=== PATIENT | female | born 1955 | race Asian ===

== ENCOUNTER 2025-01-10 14:05 | Inpatient (IN) | payer MEDICARE, MEDICAID ==
[~2025-01-10] VITALS: Ht 154.9 cm; Wt 60.7 kg
[~2025-01-10 14:05] MED LIST: ACET-2247 PO; DOCU-385 PO; ETHY1MED2 NASAL; FAMO20 PO; HEPA50009 SQ; INSLAN SQ; LEVE-71 PO; LOSA-381 PO; SULF-261 PO
[2025-01-10 16:03] LABS: CALCIUM, TOTAL 8.8 mg/dL (8.8-10.5); CREATININE 2.67 mg/dL (0.60-1.30); GLOMERULAR FILTR. RATE CALC 18.0 mL/min (>60); SODIUM SERUM 138.0 mmol/L (136-145)
[2025-01-10 16:06] LABS: GLUCOSE,RANDOM 410.0 mg/dL (70-110); UREA NITROGEN, BLOOD 110.0 mg/dL (7-18)
[2025-01-10 16:07] LABS: PLATELET COUNT (AUTO) 678 K/uL (150-450); RED BLOOD CELL COUNT(AUTO) 3.35 MIL/uL (4.00-5.20); RED CELL DISTRIBUTION WIDTH 17.3 % (11.5-14.5); WHITE BLOOD COUNT (AUTO) 15.2 K/uL (4.5-11.0)
[2025-01-10] MEDS ORDERED: 0.9% SODIUM CHLORIDE 10 ML SYRINGE IVP PRN (16:30)
[2025-01-10] MEDS: INSULIN REGULAR, HUMAN 100 UNITS/ML IVP ONE (16:49)
[2025-01-10] MEDS: SODIUM CHLORIDE 0.9% 1,600 ML IV ONE (16:49)
[2025-01-10 16:57] LABS: ASPARTATE AMINOTRANSFERASE 21 U/L (15-37); TOTAL PROTEIN, SERUM 8.9 g/dL (6.4-8.2)
[2025-01-10 16:58] LABS: TROPONIN I-HIGH SENSITIVITY 32 ng/L (<51)
[2025-01-10 16:59] LABS: LACTIC ACID 1.9 mmol/L (0.4-2.0)
[2025-01-10] MEDS: PIPERACILLIN SODIUM/TAZOBACTAM 2.25 GM in DEXTROSE 5%-WATER 50 ML IV SCH (17:22)
[2025-01-10 17:26] LABS: APPEARANCE,URINE TURBID (CLEAR); GLUCOSE, URINE (UA) NEGATIVE (NEGATIVE); LEUKOCYTE ESTERASE ,URINE LARGE (NEGATIVE); NITRATE,URINE NEGATIVE (NEGATIVE); OCCULT BLOOD,URINE LARGE (NEGATIVE); SPECIFIC GRAVITIY, URINE 1.010 (1.003-1.030)
[2025-01-10 17:31] LABS: ABG BASE EXCESS -12.7 mmol/L (-2.0-3.0); ABG CARBOXYHEMOGLOBIN 0.3 % (0.5-1.5); ABG HCO3 15.4 mmol/L (21.0-28.0); ABG METHEMOGLOBIN 1.2 % (0.0-1.5); ABG OXYGEN CONTENT 12.5 mL/dL (15.0-23.0); ABG OXYGEN SATURATION 97.1 % (94.0-98.0); ABG OXYHEMOGLOBIN 95.6 % (94.0-98.0); ABG PCO2 25 mmHg (32.0-45.0); ABG PH 7.342 (7.350-7.450); ABG TOTAL HEMOGLOBIN 9.2 G/dL (12.0-16.0); FRACTIONATED INSPIRED OXYGEN 21.0 % (21-100.0); PO2, ARTERIAL BG 98.4 mmHg (83.0-108.0); SOURCE, BLOOD GAS ARTERIAL; TEMPERATURE, FAHRENHEIT, BG 98.6 FAHREN (96.0-98.6)
[2025-01-10 17:32] LABS: ALLEN TEST, BLOOD GAS Positive; O2 DEVICE,BLOOD GAS ROOM AIR (ROOM AIR); SITE, BLOOD GAS LFT RADIAL
[2025-01-10 17:38] LABS: SQUAMOUS EPITHELIAL CELL,UR Few /LPF (None Seen); YEAST,URINE Moderate /HPF (None Seen)
[2025-01-10 17:39] LABS: SULFOSALICYLIC ACID,URINE 2+ (Negative)
[2025-01-10] MEDS ORDERED: ACETAMINOPHEN 325 MG TABLET PO PRN (19:00)
[2025-01-10] MEDS ORDERED: DEXTROSE 50%-WATER 25 GM/50 ML SYRINGE IVP PRN (19:00)
[2025-01-10] MEDS ORDERED: ONDANSETRON HCL 4 MG/2 ML VIAL IVP PRN (19:00)
[2025-01-10] MEDS: AZITHROMYCIN 500 MG/NS 250 ML IV SCH (19:29)
[2025-01-10] MEDS: INSULIN GLARGINE,HUM.REC.ANLOG 100 UNITS/ML SQ SCH (19:30)
[2025-01-10] MEDS: DOCUSATE SODIUM 100 MG CAPSULE PO SCH (19:39)
[2025-01-10 19:41] LABS: GLUCOMETER DEV NAME(LOC) ERT.7; GLUCOSE,POINT OF CARE 317 MG/DL (70-110)
[2025-01-10 21:11] VITALS: BP 153/82; PULSE 102; RESP 18; TEMP 98.6; O2SAT 99
[2025-01-10] MEDS: RINGERS SOLUTION,LACTATED 500 ML IV ONE (21:34)
[2025-01-10] MEDS: HEPARIN SODIUM,PORCINE 5,000 UNITS/ML VIAL SQ SCH (23:48)
[2025-01-11 00:30] VITALS: BP 141/69; PULSE 101; RESP 18; TEMP 97.7; O2SAT 99
[2025-01-11] MEDS: PIPERACILLIN SODIUM/TAZOBACTAM 2.25 GM in DEXTROSE 5%-WATER 50 ML IV SCH (01:37)
[2025-01-11 03:21] VITALS: BP 156/87; PULSE 107; RESP 17; TEMP 98.8; O2SAT 99
[2025-01-11] MEDS: INSULIN LISPRO 100 UNITS/ML SQ PRN (05:58)
[2025-01-11 07:35] VITALS: BP 121/75; PULSE 110; RESP 18; TEMP 97.9; O2SAT 99
[2025-01-11 08:37] LABS: PLATELET COUNT (AUTO) 666 K/uL (150-450); RED BLOOD CELL COUNT(AUTO) 3.14 MIL/uL (4.00-5.20); RED CELL DISTRIBUTION WIDTH 17.3 % (11.5-14.5); WHITE BLOOD COUNT (AUTO) 17.6 K/uL (4.5-11.0)
[2025-01-11] MEDS: DOCUSATE SODIUM 100 MG CAPSULE PO SCH (09:00)
[2025-01-11 09:05] LABS: CALCIUM, TOTAL 8.8 mg/dL (8.8-10.5); CREATININE 2.19 mg/dL (0.60-1.30); GLOMERULAR FILTR. RATE CALC 22.0 mL/min (>60); GLUCOSE,RANDOM 326.0 mg/dL (70-110); SODIUM SERUM 143.0 mmol/L (136-145); UREA NITROGEN, BLOOD 89.0 mg/dL (7-18)
[2025-01-11] MEDS ORDERED: SODIUM CHLORIDE 0.9% 250 ML IV ONE (09:14)
[2025-01-11] MEDS: RINGERS SOLUTION,LACTATED 1,000 ML IV SCH (09:28)
[2025-01-11] MEDS: FAMOTIDINE 20 MG TABLET PO SCH (09:28)
[2025-01-11] MEDS: RINGERS SOLUTION,LACTATED 500 ML IV ONE (10:28)
[2025-01-11] MEDS: RINGERS SOLUTION,LACTATED 500 ML IV SCH (11:00)
[2025-01-11 11:25] VITALS: BP 117/79; PULSE 117; RESP 20; TEMP 97; O2SAT 98
[2025-01-11 11:46] LABS: GLUCOMETER DEV NAME(LOC) 5S.2D; GLUCOSE,POINT OF CARE 281 MG/DL (70-110)
[2025-01-11] MEDS: INSULIN GLARGINE,HUM.REC.ANLOG 100 UNITS/ML SQ SCH (11:50)
[2025-01-11 15:42] VITALS: BP 130/75; PULSE 110; RESP 18; TEMP 98.2; O2SAT 99
[2025-01-11 16:16] LABS: GLUCOMETER DEV NAME(LOC) 5S.1D; GLUCOSE,POINT OF CARE 296 MG/DL (70-110)
[2025-01-11 20:00] VITALS: BP 156/72; PULSE 107; RESP 18; TEMP 98.6; O2SAT 100
[2025-01-11] MEDS: SODIUM CHLORIDE 0.45% 1,000 ML IV SCH (20:37)
[2025-01-12] MEDS ORDERED: SODIUM CHLORIDE 0.9% 500 ML IV ONE (06:33)
[2025-01-12 06:48] LABS: CALCIUM, TOTAL 8.6 mg/dL (8.8-10.5); CREATININE 1.91 mg/dL (0.60-1.30); GLOMERULAR FILTR. RATE CALC 26.0 mL/min (>60); GLUCOSE,RANDOM 145.0 mg/dL (70-110); SODIUM SERUM 141.0 mmol/L (136-145); UREA NITROGEN, BLOOD 75.0 mg/dL (7-18)
[2025-01-12 07:04] LABS: PHOSPHORUS 3.1 mg/dL (2.5-4.9)
[2025-01-12 07:54] VITALS: BP 145/75; PULSE 84; RESP 19; TEMP 98.1; O2SAT 100
[2025-01-12 11:42] VITALS: BP 161/79; PULSE 88; RESP 18; TEMP 98; O2SAT 97
[2025-01-12 12:21] LABS: GLUCOMETER DEV NAME(LOC) 5S.2D; GLUCOSE,POINT OF CARE 200 MG/DL (70-110)
[2025-01-12 12:21] LABS: GLUCOMETER DEV NAME(LOC) 5S.2D; GLUCOSE,POINT OF CARE 215 MG/DL (70-110)
[2025-01-12 15:35] VITALS: BP 153/73; PULSE 82; RESP 19; TEMP 98; O2SAT 99
[2025-01-12] MEDS ORDERED: MEGE40 PO (15:56)
[2025-01-12] MEDS ORDERED: METO25 PO (15:56)
[2025-01-12] MEDS ORDERED: METF-1211 PO (15:56)
[2025-01-12 17:06] LABS: GLUCOMETER DEV NAME(LOC) 5N.1D; GLUCOSE,POINT OF CARE 118 MG/DL (70-110)
[2025-01-12 20:59] VITALS: BP 154/94; PULSE 82; RESP 18; TEMP 98.2; O2SAT 100
[2025-01-12] MEDS ORDERED: INSULIN GLARGINE,HUM.REC.ANLOG 100 UNITS/ML SQ SCH (21:00)
[2025-01-12] MEDS: INSULIN GLARGINE,HUM.REC.ANLOG 100 UNITS/ML SQ SCH (21:07)
[2025-01-13 03:31] LABS: GLUCOMETER DEV NAME(LOC) 6N.2C; GLUCOSE,POINT OF CARE 132 MG/DL (70-110)
[2025-01-13 04:54] VITALS: BP 161/79; PULSE 77; RESP 18; TEMP 98.2; O2SAT 100
[2025-01-13 06:01] VITALS: BP 143/77; PULSE 87
[2025-01-13] MEDS: HEPARIN SODIUM,PORCINE 5,000 UNITS/ML VIAL SQ SCH (06:12)
[2025-01-13 07:49] LABS: CALCIUM, TOTAL 8.5 mg/dL (8.8-10.5); CREATININE 1.5 mg/dL (0.60-1.30); GLOMERULAR FILTR. RATE CALC 34.0 mL/min (>60); GLUCOSE,RANDOM 193.0 mg/dL (70-110); SODIUM SERUM 137.0 mmol/L (136-145); UREA NITROGEN, BLOOD 47.0 mg/dL (7-18)
[2025-01-13 07:50] LABS: PLATELET COUNT (AUTO) 534 K/uL (150-450); RED BLOOD CELL COUNT(AUTO) 2.93 MIL/uL (4.00-5.20); RED CELL DISTRIBUTION WIDTH 17.2 % (11.5-14.5); WHITE BLOOD COUNT (AUTO) 15.5 K/uL (4.5-11.0)
[2025-01-13 08:08] LABS: PHOSPHORUS 3.3 mg/dL (2.5-4.9)
[2025-01-13 08:40] VITALS: BP 142/78; PULSE 84; RESP 18; TEMP 98; O2SAT 98
[2025-01-13 10:35] LABS: % IRON SATURATION 26.5 % (22-44); IRON, SERUM 35.0 mcg/dL (50-175)
[2025-01-13] MEDS: TAMSULOSIN HCL 0.4 MG CAPSULE PO SCH (11:19)
[2025-01-13] MEDS ORDERED: PIPE2.2562 IV (13:34)
[2025-01-13] MEDS ORDERED: FERR324T23 PO (13:35)
[2025-01-13] MEDS ORDERED: PANT-31 PO (13:36)
[2025-01-13] MEDS ORDERED: SODI650T33 PO (13:39)
[2025-01-13 15:26] LABS: GLUCOMETER DEV NAME(LOC) 6S.2; GLUCOSE,POINT OF CARE 230 MG/DL (70-110)
[2025-01-13] MEDS: PIPERACILLIN SODIUM/TAZOBACTAM 2.25 GM in DEXTROSE 5%-WATER 50 ML IV SCH (15:32)
[2025-01-13 16:09] VITALS: BP 148/76; PULSE 82; RESP 18; TEMP 98.2; O2SAT 96
[2025-01-14 05:55] LABS: GLUCOMETER DEV NAME(LOC) 6S.1D; GLUCOSE,POINT OF CARE 252 MG/DL (70-110)
[2025-01-14 07:30] LABS: GLUCOMETER DEV NAME(LOC) 6N.2C; GLUCOSE,POINT OF CARE 200 MG/DL (70-110)
== END 2025-01-13 19:36 | DRG 871 ==
LOC: EMS 14:05 → EDH 17:42 → 5S 21:06 → 6S 01-12 20:05
PROVIDERS: ADMIT Internal Medicine; ATTEND Internal Medicine
DX: A41.9 Sepsis, unspecified organism (principal); J18.9 Pneumonia, unspecified organism; N17.0 Acute kidney failure with tubular necrosis; E44.0 Moderate protein-calorie malnutrition; R65.20 Severe sepsis without septic shock; E11.65 Type 2 diabetes mellitus with hyperglycemia; I10 Essential (primary) hypertension; D64.9 Anemia, unspecified; G40.909 Epilepsy, unspecified, not intractable, without status epilepticus; Z66 Do not resuscitate; Y95 Nosocomial condition; E87.6 Hypokalemia; F32.A Depression, unspecified; E86.0 Dehydration; Z74.01 Bed confinement status; Z86.73 Personal history of transient ischemic attack (TIA), and cerebral infarction without residual deficits; Z79.899 Other long term (current) drug therapy; Z68.25 Body mass index [BMI] 25.0-25.9, adult; Z79.4 Long term (current) use of insulin; Z86.19 Personal history of other infectious and parasitic diseases; Z86.718 Personal history of other venous thrombosis and embolism
CPT/HCPCS: 51702; 71045; 74176; 76770; 80048; 80076; 81001; 81002; 82009; 82271; 82805; 82962; 83540; 83550; 83605; 83735; 83880; 84100; 84145; 84484; 85025; 85045; 85610; 87040; 87081; 87086; 93005; 99291; G0378; J0456; J1644; J1815; J2543; J7030; J7040; J7050; J7060; J7120; 36415-L1; 36415-TC

== ENCOUNTER 2025-03-22 20:53 | Emergency (ER) | payer MEDICARE, MEDICAID ==
[~2025-03-22] VITALS: Ht 152.4 cm; Wt 45.9 kg
[~2025-03-22 20:53] MED LIST changes: +CHOL10002 PO; -ETHY1MED2 NASAL; +FERR324T23 PO; +HYDR-3421 PO; -LOSA-381 PO; +MEGE40 PO; +METF-1211 PO; +METO25 PO; +MULT-264 PO; +NYST15PO13 TP; +ONDA4 PO; -SULF-261 PO
[2025-03-22] MEDS ORDERED: INSULIN LISPRO 100 UNITS/ML SQ PRN (21:00)
[2025-03-22] MEDS ORDERED: ACETAMINOPHEN 325 MG TABLET PO PRN (21:00)
[2025-03-22] MEDS ORDERED: IPRATROPIUM BROMIDE 0.5 MG/2.5 ML NEB SOLUTION NEB PRN (21:00)
[2025-03-22] MEDS ORDERED: ALBUTEROL SULFATE 2.5 MG/0.5 ML NEB SOLUTION NEB PRN (21:00)
[2025-03-22] MEDS ORDERED: DEXTROSE 50%-WATER 25 GM/50 ML SYRINGE IVP PRN (21:00)
[2025-03-22] MEDS: DOCUSATE SODIUM 100 MG CAPSULE PO SCH (21:00)
[2025-03-22] MEDS ORDERED: ONDANSETRON HCL 4 MG/2 ML VIAL IVP PRN (21:00)
[2025-03-22] MEDS ORDERED: 0.9% SODIUM CHLORIDE 10 ML SYRINGE IVP PRN ×2 (21:00)
[2025-03-22 21:28] LABS: PLATELET COUNT (AUTO) 509 K/uL (150-450); RED BLOOD CELL COUNT(AUTO) 3.38 MIL/uL (4.00-5.20); RED CELL DISTRIBUTION WIDTH 19.8 % (11.5-14.5); WHITE BLOOD COUNT (AUTO) 25.5 K/uL (4.5-11.0)
[2025-03-22] MEDS: SODIUM CHLORIDE 0.9% 1,000 ML IV ONE (21:33)
[2025-03-22] MEDS: CefTRIAXone 1 GM/DEXTROSE 50 ML IV ONE (21:33)
[2025-03-22 21:40] LABS: CALCIUM, TOTAL 9.2 mg/dL (8.8-10.5); CREATININE 5.26 mg/dL (0.60-1.30); GLOMERULAR FILTR. RATE CALC 8 mL/min (>60); GLUCOSE,RANDOM 183 mg/dL (70-110); SODIUM SERUM 145 mmol/L (136-145)
[2025-03-22 21:46] LABS: TROPONIN I-HIGH SENSITIVITY 30 ng/L (<51)
[2025-03-22 21:49] LABS: UREA NITROGEN, BLOOD 224 mg/dL (7-18)
[2025-03-22 21:50] LABS: LACTIC ACID 2.2 mmol/L (0.4-2.0)
[2025-03-22 21:52] LABS: ASPARTATE AMINOTRANSFERASE 27 U/L (15-37)
[2025-03-22 21:52] LABS: COVID AG,FIA SOURCE NASAL SWAB
[2025-03-22 21:53] LABS: LACTATE DEHYDROGENASE 114 U/L (81-234); TOTAL PROTEIN, SERUM 8.9 g/dL (6.4-8.2)
[2025-03-22] MEDS: *CLINICAL-MEROPENEM DOSING CLINICAL ONE (21:59)
[2025-03-22 22:24] LABS: INFLUENZA TYPE A NEGATIVE FOR TYPE A (NEGATIVE); INFLUENZA TYPE B NEGATIVE FOR TYPE B (NEGATIVE); SARS-COV2 (COVID) ANTIGEN,FIA Negative (Negative)
[2025-03-22] MEDS: SODIUM ZIRCONIUM CYCLOSILICATE 10 GM POWDER PACKET PO ONE ×2 (22:26→22:28)
[2025-03-22] MEDS: INSULIN REGULAR, HUMAN 100 UNITS/ML IVP ONE ×2 (22:26→22:33)
[2025-03-22] MEDS: DEXTROSE 50%-WATER 25 GM/50 ML SYRINGE IVP ONE ×2 (22:27→22:32)
[2025-03-22] MEDS: CALCIUM CHLORIDE 100 MG/ML 10 ML SYRINGE IVP ONE (22:27)
[2025-03-22] MEDS: SODIUM BICARBONATE [ADULT] 8.4% 50 MEQ/50 ML SYRINGE IVP ONE ×2 (22:28→22:33)
[2025-03-22] MEDS: CALCIUM GLUCONATE 100 MG/ML 10 ML IVP ONE (22:32)
[2025-03-22] MEDS: CHLORHEXIDINE GLUCONATE 2% TOWELETTE [2'S/6'S] TP SCH (22:33)
[2025-03-22 22:41] LABS: BAND NEUTROPHILS % (MANUAL) 14 % (0-5); LYMPHOCYTES % (MANUAL) 4 % (22-44); MONOCYTES % (MANUAL) 4 % (2-9); SEGMENTED NEUTROPHILS % 78 % (40-70)
[2025-03-22 23:01] LABS: FRACTIONATED INSPIRED OXYGEN 21.0 % (21-100.0); SOURCE, BLOOD GAS ARTERIAL; TEMPERATURE, FAHRENHEIT, BG 98.6 FAHREN (96.0-98.6)
[2025-03-22 23:03] LABS: ABG BASE EXCESS -19.2 mmol/L (-2.0-3.0); ABG CARBOXYHEMOGLOBIN 0.5 % (0.5-1.5); ABG HCO3 10.9 mmol/L (21.0-28.0); ABG METHEMOGLOBIN 0.3 % (0.0-1.5); ABG OXYGEN CONTENT 11.0 mL/dL (15.0-23.0); ABG OXYGEN SATURATION 93.6 % (94.0-98.0); ABG OXYHEMOGLOBIN 92.9 % (94.0-98.0); ABG PH 7.252 (7.350-7.450); ABG TOTAL HEMOGLOBIN 8.3 G/dL (12.0-16.0); PO2, ARTERIAL BG 80.2 mmHg (83.0-108.0)
[2025-03-22 23:05] LABS: ABG PCO2 19 mmHg (32.0-45.0); SITE, BLOOD GAS LFT BRACHIAL
[2025-03-22] MEDS: MEROPENEM 1 GM in SODIUM CHLORIDE 0.9% 50 ML IV SCH (23:29)
[2025-03-22] MEDS: VANCOMYCIN 1GM/WATER(PEG/NADA) 200 ML IV ONE (23:30)
[2025-03-22] MEDS ORDERED: CALCIUM GLUCONATE 100 MG/ML 10 ML IVP PRN (23:45)
[2025-03-22] MEDS: DEXTROSE 5%-0.45% SODIUM CHL 1,000 ML IV ONE (23:50)
[2025-03-23] MEDS: NOREPINEPHRINE 8 MG/0.9 % NACL 250 ML IV PRN (00:06)
[2025-03-23] MEDS ORDERED: LevETIRAcetam 1,500 MG in DEXTROSE 5%-WATER 100 ML IV SCH (00:15)
[2025-03-23 00:27] LABS: CALCIUM, TOTAL 8.4 mg/dL (8.8-10.5); CREATININE 5.09 mg/dL (0.60-1.30); GLOMERULAR FILTR. RATE CALC 8.0 mL/min (>60); GLUCOSE,RANDOM 290.0 mg/dL (70-110); SODIUM SERUM 151.0 mmol/L (136-145)
[2025-03-23 00:45] LABS: UREA NITROGEN, BLOOD 220.0 mg/dL (7-18)
[2025-03-23] MEDS ORDERED: VASOPRESSIN 40 UNITS in DEXTROSE 5%-WATER 98 ML IV PRN (00:45)
[2025-03-23] MEDS ORDERED: PHENYLEPHRINE 200 MG/D5%-WATER 250 ML IV PRN (00:45)
[2025-03-23] MEDS: HEPARIN SODIUM,PORCINE 5,000 UNITS/ML VIAL SQ SCH (00:49)
[2025-03-23] MEDS: LevETIRAcetam 1,500 MG in DEXTROSE 5%-WATER 100 ML IV SCH (01:06)
[2025-03-23] MEDS: DEXTROSE 5%-WATER 500 ML IV ONE (01:07)
[2025-03-23 01:20] VITALS: PULSE 110; PULSE 111; RESP 22; O2SAT 98
[2025-03-23] MEDS: ALBUTEROL SULFATE 2.5 MG/0.5 ML NEB SOLUTION NEB ONE ×2 (01:20→06:43)
[2025-03-23 01:53] LABS: APPEARANCE,URINE TURBID (CLEAR); GLUCOSE, URINE (UA) NEGATIVE (NEGATIVE); LEUKOCYTE ESTERASE ,URINE LARGE (NEGATIVE); NITRATE,URINE NEGATIVE (NEGATIVE); OCCULT BLOOD,URINE LARGE (NEGATIVE); SPECIFIC GRAVITIY, URINE 1.018 (1.003-1.030)
[2025-03-23 02:06] LABS: SQUAMOUS EPITHELIAL CELL,UR Few /LPF (None Seen); SULFOSALICYLIC ACID,URINE 4+ (Negative)
[2025-03-23] MEDS: PHENYLEPHRINE 200 MG/D5%-WATER 250 ML IV PRN (02:48)
[2025-03-23] MEDS: MORPHINE SULFATE 2 MG/ML SYRINGE IVP ONE (05:31)
[2025-03-23] MEDS: SODIUM BICARBONATE [ADULT] 8.4% 50 MEQ/50 ML SYRINGE IVP ONE (06:43)
[2025-03-23] MEDS: INSULIN REGULAR, HUMAN 100 UNITS/ML IVP ONE (06:43)
[2025-03-23] MEDS: DEXTROSE 50%-WATER 25 GM/50 ML SYRINGE IVP ONE (06:44)
[2025-03-23] MEDS ORDERED: VANCOMYCIN HCL 1 GM/D5% WATER 200 ML IV PRN (09:30)
[2025-03-23 10:05] VITALS: TEMP 99.6
[2025-03-23 10:18] VITALS: BP 68/29; PULSE 59; RESP 7; O2SAT 74
[2025-03-23] MEDS ORDERED: MEROPENEM 500 MG in SODIUM CHLORIDE 0.9% 50 ML IV SCH (18:00)
== END 2025-03-23 12:45 ==
LOC: EMS 21:16 → UNDOADMIN 21:17 → EDH 21:17 → UNDOADMIN 03-23 07:23 → EDH 03-23 07:23 → EMS 03-23 12:45
DX: R41.82 Altered mental status, unspecified (principal); N17.9 Acute kidney failure, unspecified; E87.5 Hyperkalemia; R65.21 Severe sepsis with septic shock; Z79.899 Other long term (current) drug therapy; Z20.822 Contact with and (suspected) exposure to COVID-19
CPT/HCPCS: 80048; 80053; 81001; 83605; 83615; 83880; 84484; 85025; 85610; 85730; 87040; 87077; 87086; 87186; 87205; 87804; 36415; 82805; 71045; 93005; 51702; 96361; 96365; 96366; 96367; 96368; 96375 ×2; 99291; 84145; 87426; 36600; 94640; J0610; J0696; J1815; J2185; J3490 ×3; J7050; J2270; J0712; J7060 ×2; J2370; 81002; J7613